=== PATIENT | male | born 1960 | race Caucasian/White ===

== ENCOUNTER → 2017-03-08 | Outpatient (CLI) | payer BC | LOC: KOH-I 15:42 | DX: M54.9 Dorsalgia, unspecified (principal); M47.816 Spondylosis without myelopathy or radiculopathy, lumbar region; M47.814 Spondylosis without myelopathy or radiculopathy, thoracic region | CPT/HCPCS: 72070; 72110 ==

== ENCOUNTER → 2017-03-09 | Outpatient (CLI) | payer BC | LOC: KOH-I 15:42 | DX: R91.8 Other nonspecific abnormal finding of lung field (principal) | CPT/HCPCS: 71020 ==

== ENCOUNTER → 2017-03-26 | Outpatient (CLI) | payer BC, OTHER | LOC: KOH-I 11:57 | DX: J18.9 Pneumonia, unspecified organism (principal); R91.8 Other nonspecific abnormal finding of lung field | CPT/HCPCS: 71020 ==

== ENCOUNTER → 2017-03-27 | Outpatient (CLI) | payer BC, OTHER | LOC: CT 14:08 | DX: R91.8 Other nonspecific abnormal finding of lung field (principal); J18.9 Pneumonia, unspecified organism; R05 Cough; Z72.0 Tobacco use; R59.0 Localized enlarged lymph nodes; J98.4 Other disorders of lung | CPT/HCPCS: 36415; 71260; 82565; 84520; J7050; Q9962 ==